=== PATIENT | female | born 1960 | race Asian ===

== ENCOUNTER 2018-10-23 22:44 | Emergency (ER) | payer BC, OTHER ==
[~2018-10-23] VITALS: Ht 142.2 cm; Wt 48.5 kg
[~2018-10-23 22:44] MED LIST: IBUP-974 PO; OMEP20EC4 PO; RANI-287 PO
[2018-10-23 22:56] VITALS: BP 156/92
--- NOTE | 2018-10-23 23:06 | NUR ---
[facility]
--- NOTE | 2018-10-24 00:36 | NUR ---
pt ambulated to bed 04
--- NOTE | 2018-10-24 00:56 | NUR ---
58 Y/O FEMALE PRESENTS TO ED, C/O OF RIGHT SHOULDER PAIN / DOES NOT RADIATE. PT STATES PAIN STARTED LAST FRIDAY, UNABLE TO GIVE ANY VIABLE INFORMATION REGARDING HOW PAIN INITIATED. PT HAS MINIMAL ROM ON RIGHT SHOULDER. STRONG BILAT HAND TRANSITION MGR RN. STRONG BILAT RADIAL PULSES. PT VSS. ERMD AWARE. WILL CONTINUE TO MONITOR.
[2018-10-24 03:25] VITALS: BP 143/76
--- NOTE | 2018-10-24 03:25 | NUR ---
PT DISCHARGED WITH PAPERWORK. RX NORCO, MOTRIN FOR PAIN. EDUCATED PT REGARDING MEDICATIONS AND S/E. EDUCATED PT REGARDING D/C DIAGNOSIS. PT VERBALIZED UNDERSTANDING OF TEACHING. TOLD PT TO FOLLOW UP WITH PCP AND WHEN TO RETURN TO ED. PT VSS. ALL QUESTIONS ANSWERED.
== END 2018-10-24 03:25 | disposition home or self-care (01) ==
LOC: MED 22:44
DX: M25.511 Pain in right shoulder (principal); Z90.710 Acquired absence of both cervix and uterus; Z79.899 Other long term (current) drug therapy; Z88.1 Allergy status to other antibiotic agents
CPT/HCPCS: 73030; 81002; 81025; 99283

== ENCOUNTER 2019-12-16 04:03 | Emergency (ER) | payer BC, OTHER ==
[~2019-12-16] VITALS: Ht 142.2 cm; Wt 47.6 kg
[2019-12-16 04:08] VITALS: BP 170/96
[2019-12-16] MEDS: ALUMINUM HYD/MAG/SIMETHICONE 30 ML UDC PO ONE (04:33)
[2019-12-16] MEDS: lisinopriL 20 MG TAB PO ONE (04:34)
[2019-12-16] MEDS: ASPIRIN 81 MG TAB.CHEW PO ONE (04:35)
[2019-12-16] MEDS: ACETAMINOPHEN EXTRA STRENGTH 500 MG TAB PO ONE (04:36)
[2019-12-16 05:06] LABS: BASOPHILS # (AUTO) 0.1 K/uL (0.00-0.22); BASOPHILS % (AUTO) 0.6 % (0.0-2.0); EOSINOPHILS # (AUTO) 0.1 K/uL (0-0.4); EOSINOPHILS % (AUTO) 1.7 % (0.0-4.0); HEMATOCRIT 34.6 % (36-48); HEMOGLOBIN 11.6 g/dL (12.0-16.0); LYMPHOCYTES # (AUTO) 3.6 K/uL (2.5-16.5); LYMPHOCYTES % (AUTO) 44.2 % (20.5-51.1); MEAN CORPUSCULAR HEMOGLOBIN 30 pg (27-31); MEAN CORPUSCULAR HGB CONC 34 g/dL (33-37); MEAN CORPUSCULAR VOLUME 89.9 fL (80-94); MONOCYTES # (AUTO) 0.7 K/uL (0.8-1.0); MONOCYTES % (AUTO) 8.7 % (1.7-9.3); NEUTROPHILS # (AUTO) 3.7 K/uL (1.8-7.7); NEUTROPHILS % (AUTO) 44.8 % (42.2-75.2); PLATELET COUNT (AUTO) 250 K/uL (140-450); RED BLOOD CELL COUNT(AUTO) 3.85 MIL/uL (4.20-5.40); RED CELL DISTRIBUTION WIDTH 13.3 % (11.6-13.7); WHITE BLOOD COUNT (AUTO) 8.2 K/uL (4.8-10.8)
[2019-12-16 05:20] LABS: ALBUMIN 3.9 g/dL (3.4-5.0); ANION GAP 16.2 (8-16); CARBON DIOXIDE 23.7 mmol/L (21-32); CREATININE 0.8 mg/dL (0.6-1.3); POTASSIUM 3.9 mmol/L (3.5-5.1); TOTAL BILIRUBIN 0.3 mg/dL (0.0-1.0)
[2019-12-16 08:38] VITALS: BP 135/71
== END 2019-12-16 08:34 | disposition home or self-care (01) ==
LOC: MED 04:03
DX: R07.9 Chest pain, unspecified (principal); Z88.1 Allergy status to other antibiotic agents; Z79.899 Other long term (current) drug therapy
CPT/HCPCS: 36415; 71045; 80053; 83880; 84484; 85025; 93005; 99285; Q0092

== ENCOUNTER 2020-02-13 04:44 | Emergency (ER) | payer OTHER ==
[~2020-02-13] VITALS: Ht 142.2 cm; Wt 49.9 kg
[2020-02-13 05:10] VITALS: BP 151/90
--- NOTE | 2020-02-13 05:12 | NUR ---
TO LOBBY A/W BED AMBULATORY
--- NOTE | 2020-02-13 05:30 | NUR ---
SEEN AND EXAMINED BY ERMD WITH ORDERS CARRIED OUT
--- NOTE | 2020-02-13 07:11 | NUR ---
PT RETURN FROM CT TO ER LOBBY
[2020-02-13 09:00] VITALS: BP 151/90
--- NOTE | 2020-02-13 09:00 | NUR ---
Patient discharged with v/s stable. Written and verbal after care instructions given and explained. Patient verbalized understanding. Ambulatory with steady gait. All questions addressed prior to discharge. Advised to follow up with PMD.
== END 2020-02-13 09:00 | disposition home or self-care (01) ==
LOC: MED 04:44
DX: R51.9 Headache, unspecified (principal); I10 Essential (primary) hypertension; Z79.899 Other long term (current) drug therapy; Z88.1 Allergy status to other antibiotic agents; Z90.710 Acquired absence of both cervix and uterus
CPT/HCPCS: 70450; 99284